=== PATIENT | female | born 1985 | race Caucasian/White ===

== ENCOUNTER 2017-06-06 16:28 | Emergency (ER) | payer BC ==
[~2017-06-06] VITALS: Ht 175.3 cm; Wt 72.6 kg
[2017-06-06] MEDS ORDERED: SODIUM CHLORIDE 0.9% 1000ML 1,000 ML IV STA ×3 (16:55→17:07)
[2017-06-06] MEDS ORDERED: ONDANSETRON HCL INJ 2 MG/ML VIAL IV STA (16:55)
[2017-06-06 17:19] LABS: BASOPHILS # (AUTO) 0.1 (0.0-0.1); BASOPHILS % 0.4 % (0.0-1.0); EOSINOPHILS # (AUTO) 0.1 (0.0-0.4); EOSINOPHILS % 0.6 % (0.0-6.0); HEMOGLOBIN 13.5 g/dL (12.0-16.0); LYMPHOCYTES # (AUTO) 2.8 (1.0-3.2); LYMPHOCYTES % 20.7 % (18.0-39.1); MEAN CORPUSCULAR HEMOGLOBIN 29.9 pg (28-32); MEAN CORPUSCULAR HGB CONC 33.8 g/dL (31-35); MEAN CORPUSCULAR VOLUME 88.5 fL (81-99); MONOCYTES # (AUTO) 0.8 (0.2-0.8); MONOCYTES % 5.7 % (4.4-11.3); NEUTROPHILS # (AUTO) 9.6 (2.1-6.9); NEUTROPHILS % 71.5 % (38.7-80.0); PLATELET COUNT 243 x10e3/uL (140-360); RED BLOOD COUNT 4.52 x10e6/uL (3.6-5.1); RED CELL DISTRIBUTION WIDTH 12.9 % (11.7-14.4)
[2017-06-06 17:36] LABS: ALANINE AMINOTRANSFERASE 28 IU/L (0-55); ALBUMIN 3.8 g/dL (3.5-5.0); ALBUMIN/GLOBULIN RATIO 1.2 (0.8-2.0); ALKALINE PHOSPHATASE 39 IU/L (40-150); ANION GAP 11.6 mmol/L (8-16); BLOOD UREA NITROGEN 9 mg/dL (7-26); BUN/CREATININE RATIO 13 (6-25); CALCIUM 8.9 mg/dL (8.4-10.2); CARBON DIOXIDE 22 mmol/L (22-29); CHLORIDE 108 mmol/L (98-107); CREATININE, SERUM 0.71 mg/dL (0.57-1.11); EST GLOMERULAR FILTRATION RATE > 60 ML/MIN (60-); GLUCOSE 118 mg/dL (74-118); POTASSIUM 3.6 mmol/L (3.5-5.1); SODIUM 138 mmol/L (136-145)
[2017-06-06 18:11] LABS: BILIRUBIN,URINE NEGATIVE (NEGATIVE); CLARITY,URINE CLOUDY (CLEAR); COLOR,URINE RED (YELLOW); KETONES,URINE NEGATIVE (NEGATIVE); LEUKOCYTE ESTERASE ,URINE NEGATIVE (NEGATIVE); NITRITE,URINE NEGATIVE (NEGATIVE); URINE UROBILINOGEN 0.2 mg/dL (0.2 - 1)
[2017-06-06 18:12] LABS: PROTEIN,URINE DIPSTICK 1+ (NEGATIVE)
[2017-06-06 18:19] LABS: BACTERIA,URINE RARE /HPF; EPITHELIAL CELLS,URINE RARE /LPF; MUCUS,URINE FEW (RARE); RBC,URINE >50 /HPF (0-5); WBC,URINE (MAN) 0-5 /HPF (0-5)
--- NOTE | 2017-06-06 19:18 | Diagnostic Imaging Report ---
1st trimester OB ultrasound, June 06, 2017 Clinical history: Heavy vaginal bleeding. Comparison: None Technique: Grayscale and color Doppler transvaginal ultrasound pelvis Findings: Quantitative beta hC.69 Anteverted uterus: 7.9 x 4.4 x 5.6 cm. Endometrial thickness 1.4 cm. No conspicuous gestational sac. Right ovary: 3.3 x 2.1 x 2.1 cm. Complex cyst 1.7 x 0.9 x 1.3 cm, likely a corpus luteum. Left ovary: 3.4 x 1.9 x 1.8 cm Trace simple free fluid in the pelvis. Impression: 1. No conspicuous intrauterine . The quantitative beta hCG is below the level required for typical visualization of early by ultrasound. 2. Serial beta hCG is recommended, with follow-up ultrasound as clinically warranted. This report was generated with voice-recognition technology. Errors in core placer can occur. Please interpret accordingly and contact a radiologist if there are any questions regarding the report. Signed by: Dr. Cliff White M.D. on 06/06/2017 7:14 PM
== END 2017-06-06 20:14 | disposition home or self-care (01) ==
LOC: ER 16:28
DX: O20.9 Hemorrhage in early pregnancy, unspecified (principal); O20.0 Threatened abortion; R11.2 Nausea with vomiting, unspecified
CPT/HCPCS: 36415; 76817; 80053; 81001; 84702; 85025; 86900; 87086; 99284; J7030